=== PATIENT | female | born 1960 | race Caucasian/White ===

== ENCOUNTER 2019-04-23 08:21 | Outpatient (CLI) | payer OTHER ==
[~2019-04-23] VITALS: Ht 170.2 cm; Wt 95.3 kg
[2019-04-23 08:59] LABS: BASO # 0.1 x10^3/uL (0.0-0.2); BASO % 1 % (0-3); EOS # 0.1 x10^3/uL (0.0-0.7); EOS % 1 % (0-3); HEMATOCRIT 43.9 % (36.0-47.0); HEMOGLOBIN 14.7 g/dL (12.0-15.5); LYMPH # 2.8 x10^3/uL (1.0-4.8); LYMPH % 30 % (24-48); MEAN CORPUSCULAR HEMOGLOBIN 29 pg (25-35); MEAN CORPUSCULAR HGB CONC 33 g/dL (31-37); MEAN CORPUSCULAR VOLUME 86 fL (79-100); MONO # 0.6 x10^3/uL (0.0-1.1); MONO % 7 % (0-9); NEUT # 5.8 x10^3/uL (1.8-7.7); NEUT % 62 % (31-73); PLATELET COUNT 300 x10^3/uL (140-400); RED BLOOD COUNT 5.09 x10^6/uL (3.50-5.40); RED CELL DISTRIBUTION WIDTH 14.5 % (11.5-14.5); WHITE BLOOD COUNT 9.3 x10^3/uL (4.0-11.0)
[2019-04-23 09:05] VITALS: BP 146/88
[2019-04-23 09:06] LABS: PROTHROMBIN TIME PATIENT 12.7 SEC (11.7-14.0)
[2019-04-23] MEDS ORDERED: LISI1TAB23 PO (09:23)
[2019-04-23] MEDS ORDERED: ATOR40TA59 PO (09:23)
[2019-04-23] MEDS ORDERED: IRON1TAB2 PO (09:23)
[2019-04-23] MEDS ORDERED: CHOL10003 PO (09:23)
[2019-04-23] MEDS ORDERED: MAGN400C PO (09:23)
[2019-04-23] MEDS ORDERED: ACET1TAB33 PO (09:23)
[2019-04-23] MEDS ORDERED: FENO145T PO (09:23)
[2019-04-23] MEDS ORDERED: VORT10TA PO (09:23)
[2019-04-23] MEDS ORDERED: ATEN25TA PO (09:23)
[2019-04-23] MEDS ORDERED: CALC-77 PO (09:23)
--- NOTE | 2019-04-23 09:43 | NUR ---
After speaking with Dr. Smith; the patient decided to wait on procedure.
== END 2019-04-23 09:30 | disposition home or self-care (01) ==
LOC: INTRAD 08:21
PROVIDERS: ATTEND Family Medicine
DX: T14.8XXA Other injury of unspecified body region, initial encounter (principal); Z53.29 Procedure and treatment not carried out because of patient's decision for other reasons
CPT/HCPCS: 36415; 85025; 85610; 85730

== ENCOUNTER → 2020-05-05 | Outpatient (CLI) | payer OTHER ==
[~2020-05-05] MED LIST: ACET1TAB33 PO; ATEN25TA PO; ATOR40TA59 PO; CALC-77 PO; CHOL10003 PO; FENO145T PO; IRON1TAB2 PO; LISI1TAB23 PO; MAGN400C PO; VORT10TA PO
--- NOTE | 2020-05-05 15:10 | KCIC ---
EXAM: Bilateral digital screening mammogram with tomosynthesis. HISTORY: 60-year-old female presents for screening mammography. TECHNIQUE: Full-field digital craniocaudal and mediolateral oblique 2D and 3D tomosynthesis images of both breasts are obtained for evaluation. Computer aided detection with [employer] software version 9.3 was applied. COMPARISON: 06/24/2015 BREAST PARENCHYMAL DENSITY: Level B - Scattered fibroglandular densities. FINDINGS: There are circumscribed nodular densities scattered throughout both breasts, the majority of which are more conspicuous compared to the prior exam likely due to differences in technique. These are predominantly seen within the lateral aspects of both breasts. There is no architectural distortion or suspicious calcification within either breast. IMPRESSION: BI-RADS Category 0: Incomplete. Additional imaging needed. RECOMMENDATION: Further evaluation with a bilateral breast sonogram is recommended to assess nodularity throughout both breasts in a predominantly lateral distribution, likely more conspicuous on the current exam due to differences in technique. The multiplicity of these lesions favors a benign cystic/fibrocystic etiology. If your mammogram demonstrates that you have dense breast tissue, which could hide abnormalities, and if you have other risk factors for breast cancer that have been identified, you might benefit from supplemental screening tests that may be suggested by your ordering physician. Dense breast tissue, in and of itself, is a relatively common condition. This information is not provided to cause undue concern, but rather to raise your awareness and to promote discussion with your physician regarding the presence of other risk factors, in addition to dense breast tissue. A report of your mammography results will be sent to you and your physician. You should contact your physician if you have any questions or concerns regarding this report. Mammography is a sensitive method for finding small breast cancers, but it does not detect them all and is not a substitute for careful clinical examination. A negative mammogram does not negate a clinically suspicious finding and should not result in delay in biopsying a clinically suspicious abnormality. PQRS compliance statement - Patient information was entered into a reminder system with a target due date for the next mammogram. "Our facility is accredited by the [employer] Mamm[employer]." Electronically signed by: Julieta Gutierrez MD (05/05/2020 3:08 PM) [id number]
== END | disposition home or self-care (01) ==
LOC: KCIC MAMMO 12:35
PROVIDERS: ATTEND Family Medicine
DX: Z12.31 Encounter for screening mammogram for malignant neoplasm of breast (principal); N64.89 Other specified disorders of breast
CPT/HCPCS: 77063; 77067

== ENCOUNTER → 2020-05-26 | Outpatient (CLI) | payer OTHER ==
--- NOTE | 2020-05-26 14:09 | KCIC ---
Bilateral breast ultrasound: Reason for examination: Nodular densities on screening mammogram. Comparison is made to mammographic exam dated 05/05/2020. Bilateral whole breast ultrasound including evaluation of all 4 quadrants and the retroareolar and axillary regions of both breasts was performed. There are multiple small anechoic and hypoechoic circumscribed lesions throughout the breasts bilaterally which are all subcentimeter in size and have benign cystic and fibrocystic appearances. No suspicious-appearing nodules are seen. No abnormal appearing lymph nodes are seen in the axilla bilaterally. IMPRESSION: Multiple small benign-appearing cystic and fibrocystic type lesions throughout both breasts which are subcentimeter in size. Recommend 6 month follow-up with ultrasound. BI-RADS Category 3: Probably Benign. "Our facility is accredited by the [employer] Mammography [employer]." This patient's information has been entered into a reminder system for the patient to be notified with the results of her examination and a target date for the next mammogram. Electronically signed by: Sowmya Shelby MD (05/26/2020 2:07 PM) [id number]
== END ==
LOC: KCIC US 13:00
PROVIDERS: ATTEND Family Medicine
DX: N60.01 Solitary cyst of right breast (principal); N60.02 Solitary cyst of left breast
CPT/HCPCS: 76641